=== PATIENT | female | born 1965 | race Two or more races ===

== ENCOUNTER → 2018-04-27 | Emergency (ER) | payer OTHER ==
[~2018-04-27] VITALS: Ht 162.6 cm; Wt 53.5 kg
[~2018-04-27] MED LIST: KETO10TA2 PO; SKELAXIN800 MG PO
== END | disposition home or self-care (01) ==
LOC: ER 18:53
DX: R07.89 Other chest pain (principal); M94.0 Chondrocostal junction syndrome [Tietze]